=== PATIENT | male | born 1995 | race Caucasian/White ===

== ENCOUNTER 2017-04-24 17:23 | Emergency (ER) | payer SELFPAY ==
[~2017-04-24] VITALS: Ht 188 cm; Wt 100.0 kg
[2017-04-24 17:25] VITALS: BP 162/94; PULSE 90; RESP 20; TEMP 98.9; O2SAT 99
--- NOTE | 2017-04-24 20:26 | PD ---
HPI Chief Complaint: GI Complaint Time Seen by Provider: 20:22 Travel History International Travel<30 days: No Contact w/Intl Traveler<30days: No Traveled to known affect area: No History of Present Illness HPI 22-year-old male with no significant medical history presents to the emergency department for evaluation of 7 months of nausea and vomiting. Patient states he cannot keep anything down. He has seen GI for this and had an endoscopy and has been started on omeprazole. He states he does take this as directed. He states it does help with some of his indigestion but he feels like the reflux has gotten worse. Denies any hematemesis. No changes in bowel or bladder. No significant abdominal pain Or epigastric mild left upper quadrant mostly associated vomiting. Denies any fever or chills. Has no other symptoms to report. PFSH Past Medical History Medical History: Denies Significant Hx Social History Alcohol Use: No Tobacco Use: No Substance Use: No Allergies-Medications (Allergen,Severity, Reaction): Coded Allergies: No Known Allergies (Unverified , 04/24/17) Reported Meds & Prescriptions Reported Meds & Active Scripts Active Zofran Odt (Ondansetron Odt) 4 Mg Tab 4 Mg SL Q6HR PRN Reported Norvasc (Amlodipine Besylate) 5 Mg Tab 5 Mg PO DAILY Hydrochlorothiazide 12.5 Mg Cap 12.5 Mg PO DAILY Review of Systems Except as stated in HPI: all other systems reviewed are Neg Physical Exam Narrative GENERAL: Well-nourished male patient, in no acute distress. SKIN: Focused skin assessment warm/dry. HEAD: Atraumatic. Normocephalic. EYES: Pupils equal and round. No scleral icterus. No injection or drainage. ENT: No nasal bleeding or discharge. Mucous membranes pink and moist. NECK: Trachea midline. No JVD. CARDIOVASCULAR: Regular rate and rhythm. No murmur appreciated. RESPIRATORY: No accessory muscle use. Clear to auscultation. Breath sounds equal bilaterally. GASTROINTESTINAL: Abdomen soft, non-tender, nondistended. Hepatic and splenic margins not palpable. MUSCULOSKELETAL: No obvious deformities. No clubbing. No cyanosis. No edema. NEUROLOGICAL: Awake and alert. No obvious cranial nerve deficits. Motor grossly within normal limits. Normal speech. PSYCHIATRIC: Appropriate mood and affect; insight and judgment normal. Data Data Last Documented VS Vital Signs Date Time Temp Pulse Resp B/P (MAP) Pulse Ox O2 Delivery O2 Flow Rate FiO2 04/24/17 22:57 04/24/17 21:40 80 16 100 Room Air 04/24/17 17:25 98.9 Orders Orders Complete Blood Count With Diff (04/24/17 20:27) Comprehensive Metabolic Panel (04/24/17 20:27) Lipase (04/24/17 20:27) Urinalysis - C+S If Indicated (04/24/17 20:27) Iv Access Insert/Monitor (04/24/17 20:27) Ecg Monitoring (04/24/17 20:27) Oximetry (04/24/17 20:27) Ondansetron Inj (Zofran Inj) (04/24/17 20:30) Sodium Chlor 0.9% 1000 Ml Inj (Ns 1000 M (04/24/17 20:27) Sodium Chloride 0.9% Flush (Ns Flush) (04/24/17 20:30) Al-Mag Hy-Si 40-40-4 Mg/Ml Liq (Mag-Al P (04/24/17 20:30) Lidocaine 2% Viscous (Xylocaine 2% Visco (04/24/17 20:30) Potassium Chloride (Kcl) (04/24/17 22:45) Ed Discharge Order (04/24/17 22:47) Labs Laboratory Tests Test 04/24/17 21:17 White Blood Count 5.6 TH/MM3 Red Blood Count 5.14 MIL/MM3 Hemoglobin 15.6 GM/DL Hematocrit 45.7 % Mean Corpuscular Volume 88.9 FL Mean Corpuscular Hemoglobin 30.4 PG Mean Corpuscular Hemoglobin Concent 34.2 % Red Cell Distribution Width 12.7 % Platelet Count 233 TH/MM3 Mean Platelet Volume 8.6 FL Neutrophils (%) (Auto) 61.6 % Lymphocytes (%) (Auto) 29.5 % Monocytes (%) (Auto) 8.5 % Eosinophils (%) (Auto) 0.2 % Basophils (%) (Auto) 0.2 % Neutrophils # (Auto) 3.4 TH/MM3 Lymphocytes # (Auto) 1.6 TH/MM3 Monocytes # (Auto) 0.5 TH/MM3 Eosinophils # (Auto) 0.0 TH/MM3 Basophils # (Auto) 0.0 TH/MM3 CBC Comment DIFF FINAL Differential Comment Urine Color YELLOW Urine Turbidity CLEAR Urine pH 5.5 Urine Specific [place] 1.025 Urine Protein TRACE mg/dL Urine Glucose (UA) NEG mg/dL Urine Ketones 80 mg/dL Urine Occult Blood NEG Urine Nitrite NEG Urine Bilirubin NEG Urine Urobilinogen 2.0 MG/DL Urine Leukocyte Esterase NEG Urine RBC LESS THAN 1 /hpf Urine WBC LESS THAN 1 /hpf Urine Mucus MANY /lpf Microscopic Urinalysis Comment CULT NOT INDICATED Blood Urea Nitrogen 11 MG/DL Creatinine 0.83 MG/DL Random Glucose 85 MG/DL Total Protein 7.9 GM/DL Albumin 4.4 GM/DL Calcium Level 8.9 MG/DL Alkaline Phosphatase 64 U/L Aspartate Amino Transf (AST/SGOT) 33 U/L Alanine Aminotransferase (ALT/SGPT) 36 U/L Total Bilirubin 0.6 MG/DL Sodium Level 140 MEQ/L Potassium Level 3.0 MEQ/L Chloride Level 102 MEQ/L Carbon Dioxide Level 30.8 MEQ/L Anion Gap 7 MEQ/L Estimat Glomerular Filtration Rate 117 ML/MIN Lipase 107 U/L [facility] Medical Decision Making Medical Screen Exam Complete: Yes Emergency Medical Condition: Yes Medical Record Reviewed: Yes Differential Diagnosis Gastritis versus esophagitis versus pancreatitis versus electrolyte abnormality versus gastroparesis Narrative Course 22-year-old male presents emergency department for evaluation nausea and vomiting 7 months. Patient appears without distress. Abdominal exam is essentially benign. I discussed the patient my attending physician who recommends they move forward with lab work. Patient was given GI cocktail, IV fluids. Upon reassessment he states this does help ease his reflux sensation. Reports his nausea has resolved. Laboratory Tests Test 04/24/17 21:17 White Blood Count 5.6 TH/MM3 Red Blood Count 5.14 MIL/MM3 Hemoglobin 15.6 GM/DL Hematocrit 45.7 % Mean Corpuscular Volume 88.9 FL Mean Corpuscular Hemoglobin 30.4 PG Mean Corpuscular Hemoglobin Concent 34.2 % Red Cell Distribution Width 12.7 % Platelet Count 233 TH/MM3 Mean Platelet Volume 8.6 FL Neutrophils (%) (Auto) 61.6 % Lymphocytes (%) (Auto) 29.5 % Monocytes (%) (Auto) 8.5 % Eosinophils (%) (Auto) 0.2 % Basophils (%) (Auto) 0.2 % Neutrophils # (Auto) 3.4 TH/MM3 Lymphocytes # (Auto) 1.6 TH/MM3 Monocytes # (Auto) 0.5 TH/MM3 Eosinophils # (Auto) 0.0 TH/MM3 Basophils # (Auto) 0.0 TH/MM3 CBC Comment DIFF FINAL Differential Comment Urine Color YELLOW Urine Turbidity CLEAR Urine pH 5.5 Urine Specific [place] 1.025 Urine Protein TRACE mg/dL Urine Glucose (UA) NEG mg/dL Urine Ketones 80 mg/dL Urine Occult Blood NEG Urine Nitrite NEG Urine Bilirubin NEG Urine Urobilinogen 2.0 MG/DL Urine Leukocyte Esterase NEG Urine RBC LESS THAN 1 /hpf Urine WBC LESS THAN 1 /hpf Urine Mucus MANY /lpf Microscopic Urinalysis Comment CULT NOT INDICATED Blood Urea Nitrogen 11 MG/DL Creatinine 0.83 MG/DL Random Glucose 85 MG/DL Total Protein 7.9 GM/DL Albumin 4.4 GM/DL Calcium Level 8.9 MG/DL Alkaline Phosphatase 64 U/L Aspartate Amino Transf (AST/SGOT) 33 U/L Alanine Aminotransferase (ALT/SGPT) 36 U/L Total Bilirubin 0.6 MG/DL Sodium Level 140 MEQ/L Potassium Level 3.0 MEQ/L Chloride Level 102 MEQ/L Carbon Dioxide Level 30.8 MEQ/L Anion Gap 7 MEQ/L Estimat Glomerular Filtration Rate 117 ML/MIN Lipase 107 U/L Patient's potassium was repleted here in emergency department. He is counseled on care and encouraged to follow-up with a configuration management administrator again. He agrees to return immediately with any acute worsening symptoms. Diagnosis Primary Impression: Nausea & vomiting Qualified Codes: R11.2 - Nausea with vomiting, unspecified Additional Impression: Hypokalemia Referrals: Decorator Inspector Primary Care Physician Patient Instructions: Diet for Stomach Ulcers and Gastritis (ED), General Instructions Additional Instructions: Rheems diet Clear liquids, advance as tolerated Follow-up with gastroenterology. Follow-up with your primary care Return immediately to the emergency department with any acute worsening symptoms Med/Other Pt SpecificInfo: Prescription(s) given Scripts Ondansetron Odt (Zofran Odt) 4 Mg Tab 4 MG SL Q6HR Y for Nausea/Vomiting, #15 TAB 0 Refills Prov: Freda Bolton 04/24/17 Disposition: 01 DISCHARGE HOME Condition: Stable Freda Bolton Apr 24, 2017 20:26
[2017-04-24] MEDS ORDERED: SODIUM CHLOR 0.9% 1000 ML INJ 1,000 ML IV SCH (20:27)
[2017-04-24] MEDS ORDERED: ALUMINUM/MAGNESIUM/SIMETH 30 ML CUP PO ONE (20:30)
[2017-04-24] MEDS ORDERED: ONDANSETRON HCL 4 MG/2 ML VIAL IVP ONE (20:30)
[2017-04-24] MEDS ORDERED: LIDOCAINE VISCOUS 2% SOLN 15 ML UDC PO ONE (20:30)
[2017-04-24] MEDS ORDERED: SODIUM CHLORIDE 0.9% FLUSH 10 ML FLUSH IV FLUSH PRN (20:30)
[2017-04-24 21:40] VITALS: BP_SYST 131; BP_SYST 132; BP_DIAS 61; BP_DIAS 62; PULSE 80; RESP 16; O2SAT 100
[2017-04-24] MEDS ORDERED: HYDR12.57 PO (21:59)
[2017-04-24] MEDS ORDERED: AMLO5 PO (21:59)
[2017-04-24 22:11] LABS: AUTOMATED NEUTROPHIL # 3.4 TH/MM3 (1.8-7.7); BASOPHIL % 0.2 % (0.0-2.0); EOSINOPHIL % 0.2 % (0.0-4.0); HEMATOCRIT 45.7 % (39.0-51.0); HEMOGLOBIN 15.6 GM/DL (13.0-17.0); LYMPH % 29.5 % (9.0-44.0); LYMPHOCYTE # 1.6 TH/MM3 (1.0-4.8); MEAN CELL VOLUME 88.9 FL (80.0-100.0); MEAN CORPUSCULAR HEMOGLOBIN 30.4 PG (27.0-34.0); MEAN CORPUSCULAR HGB CONC 34.2 % (32.0-36.0); MEAN PLATELET VOLUME 8.6 FL (7.0-11.0); MONO % 8.5 % (0.0-8.0); MONOCYTE # 0.5 TH/MM3 (0-0.9); NEUT % 61.6 % (16.0-70.0); PLATELET COUNT 233 TH/MM3 (150-450); RED BLOOD COUNT 5.14 MIL/MM3 (4.50-5.90); RED CELL DISTRIBUTION WIDTH 12.7 % (11.6-17.2); WHITE BLOOD COUNT 5.6 TH/MM3 (4.0-11.0)
[2017-04-24 22:31] LABS: ALBUMIN 4.4 GM/DL (3.4-5.0); AST (GOT) 33 U/L (15-37); BICARBONATE 30.8 MEQ/L (21.0-32.0); BLOOD UREA NITROGEN 11 MG/DL (7-18); CALCIUM 8.9 MG/DL (8.5-10.1); CHLORIDE 102 MEQ/L (98-107); CREATININE 0.83 MG/DL (0.60-1.30); GLOMERULAR FILTRATION RATE 117 ML/MIN (>89); GLUCOSE,RANDOM 85 MG/DL (74-106); LIPASE 107 U/L (73-393); SODIUM (NA) 140 MEQ/L (136-145)
[2017-04-24 22:33] LABS: BILIRUBIN, URINE NEG (NEG); BLOOD, URINE NEG (NEG); GLUCOSE,URINE NEG (NEG); KETONE, URINE 80 mg/dL (NEG); MUCUS URINE MANY /lpf (OCC); NITRITE,URINE NEG (NEG); PH, URINE 5.5 (5.0-8.5); URINE COLOR YELLOW (YELLW/STRAW); URINE LEUKOCYTE ESTERASE NEG (NEG)
[2017-04-24 22:35] LABS: ALKALINE PHOSPHATASE 64 U/L (45-117); ALT (GPT) 36 U/L (12-78); TOTAL BILIRUBIN ADULT 0.6 MG/DL (0.2-1.0); TOTAL PROTEIN 7.9 GM/DL (6.4-8.2)
[2017-04-24] MEDS ORDERED: POTASSIUM CHLORIDE 10 MEQ CONTROLLED RELEASE TAB PO ONE (22:45)
[2017-04-24] MEDS ORDERED: ZOFR4TAB3 SL (22:53)
== END 2017-04-24 23:10 | disposition home or self-care (01) ==
LOC: NEPD 17:23
DX: R11.2 Nausea with vomiting, unspecified (principal); E87.6 Hypokalemia; K21.9 Gastro-esophageal reflux disease without esophagitis; Z79.899 Other long term (current) drug therapy
CPT/HCPCS: 80053; 81001; 83690; 85025; 96361; 96374; 99284; J2405; J7030

== ENCOUNTER 2017-05-24 18:22 | Emergency (ER) | payer SELFPAY ==
[~2017-05-24] VITALS: Ht 188 cm; Wt 90.5 kg
[~2017-05-24 18:22] MED LIST: AMLO5 PO; HYDR12.57 PO; ZOFR4TAB3 SL
[2017-05-24 18:23] VITALS: BP 146/89; PULSE 87; RESP 14; TEMP 97.8; O2SAT 100
[2017-05-24 18:45] VITALS: BP 156/83; PULSE 85; RESP 18; O2SAT 100
[2017-05-24] MEDS ORDERED: CITA40TA4 PO (18:48)
[2017-05-24] MEDS ORDERED: SODIUM CHLORIDE 0.9% FLUSH 10 ML FLUSH IVF PRN (19:15)
[2017-05-24] MEDS ORDERED: KETOROLAC TROMETHAMINE 30 MG/ML (IVP) VIAL IV PUSH ONE (19:15)
--- NOTE | 2017-05-24 19:32 | PD ---
HPI Chief Complaint: Pain: Acute or Chronic Time Seen by Provider: 18:57 Travel History International Travel<30 days: No Contact w/Intl Traveler<30days: No Traveled to known affect area: No History of Present Illness HPI 22-year-old male presents to the emergency department for evaluation of chest pain that he states started approximately one hour prior to arrival. He states it is in the left chest closed to the admits sternal area. He points to specific area where the pain is. Patient states he also had an episode of dizziness and tingling in all extremities. He does report history of anxiety, but states this is not his typical anxiety symptoms. He also states he was coughing up blood, he thinks it was from a nosebleed. He denies any recent surgery or travel. No leg edema. No history DVT or PE. He does have history of hypertension. He denies any significant family cardiac history. Patient states that he was a previous IV drug user, but has not used in 8 months. He does state that coughing will worsen the pain. No alleviating factors. Moderate severity. PFSH Past Medical History Anxiety: Yes Diminished Hearing: No Gastrointestinal Disorders: Yes (GB DISEASE) GERD: Yes Hypertension: Yes Immunizations Current: No Tetanus Vaccination: Unknown Influenza Vaccination: No Past Surgical History Tonsillectomy: Yes Social History Alcohol Use: Yes (occ) Tobacco Use: Yes Substance Use: No Allergies-Medications (Allergen,Severity, Reaction): Coded Allergies: No Known Allergies (Unverified , 05/24/17) Reported Meds & Prescriptions Reported Meds & Active Scripts Active Reported Citalopram (Citalopram Hydrobromide) 40 Mg Tab 40 Mg PO DAILY Norvasc (Amlodipine Besylate) 5 Mg Tab 5 Mg PO DAILY Hydrochlorothiazide 12.5 Mg Cap 12.5 Mg PO DAILY Review of Systems Except as stated in HPI: all other systems reviewed are Neg Physical Exam Narrative GENERAL: Well-nourished, well-developed male patient, afebrile. SKIN: Focused skin assessment warm/dry. HEAD: Normocephalic. Atraumatic. EYES: No scleral icterus. No injection or drainage. NECK: Supple, trachea midline. No JVD or lymphadenopathy. CARDIOVASCULAR: Regular rate and rhythm without murmurs, gallops, or rubs. RESPIRATORY: Breath sounds equal bilaterally. No accessory muscle use. Lungs sounds are clear to auscultation. GASTROINTESTINAL: Abdomen soft, non-tender, nondistended. MUSCULOSKELETAL: No cyanosis, or edema. Chest pain is reproducible with palpation. BACK: Nontender without obvious deformity. No CVA tenderness. Data Data Last Documented VS Vital Signs Date Time Temp Pulse Resp B/P (MAP) Pulse Ox O2 Delivery O2 Flow Rate FiO2 05/24/17 19:47 69 15 146/77 (100) 100 Room Air 05/24/17 18:23 97.8 Orders Orders Electrocardiogram (05/24/17:) Basic Metabolic Panel (Bmp) (05/24/17 19:07) Ckmb (Isoenzyme) Profile (05/24/17:) Complete Blood Count With Diff (05/24/17:) D-Dimer (05/24/17:) Magnesium (Mg) (05/24/17:) Prothrombin Time / Inr (Pt) (05/24/17:) Act Partial Throm Time (Ptt) (05/24/17:) Troponin I (05/24/17:) Chest, Single Ap (05/24/17:) Ecg Monitoring (05/24/17:) Bilateral Bp Monitoring (05/24/17:) Iv Access Insert/Monitor (05/24/17:) Oximetry (05/24/17:) Oxygen Administration (05/24/17:07) Sodium Chloride 0.9% Flush (Ns Flush) (05/24/17 19:15) Drug Screen, Random Urine (05/24/17 19:) Ketorolac Inj (Toradol Inj) (05/24/17 19:15) Influenzae A/B Antigen (05/24/17 19:27) CKMB (05/24/17 19:20) CKMB% (05/24/17 19:20) Labs Laboratory Tests Test 05/24/17 19:20 White Blood Count 7.5 TH/MM3 Red Blood Count 4.89 MIL/MM3 Hemoglobin 15.3 GM/DL Hematocrit 43.5 % Mean Corpuscular Volume 88.8 FL Mean Corpuscular Hemoglobin 31.2 PG Mean Corpuscular Hemoglobin Concent 35.2 % Red Cell Distribution Width 12.9 % Platelet Count 261 TH/MM3 Mean Platelet Volume 8.6 FL Neutrophils (%) (Auto) 52.4 % Lymphocytes (%) (Auto) 39.9 % Monocytes (%) (Auto) 5.8 % Eosinophils (%) (Auto) 1.5 % Basophils (%) (Auto) 0.4 % Neutrophils # (Auto) 3.9 TH/MM3 Lymphocytes # (Auto) 3.0 TH/MM3 Monocytes # (Auto) 0.4 TH/MM3 Eosinophils # (Auto) 0.1 TH/MM3 Basophils # (Auto) 0.0 TH/MM3 CBC Comment DIFF FINAL Differential Comment Prothrombin Time 10.6 SEC Prothromb Time International Ratio 1.0 RATIO Activated Partial Thromboplast Time 25.2 SEC D-Dimer Quantitative (PE/DVT) 0.19 MG/L FEU Blood Urea Nitrogen 11 MG/DL Creatinine 0.91 MG/DL Random Glucose 95 MG/DL Calcium Level 9.3 MG/DL Magnesium Level 2.1 MG/DL Sodium Level 139 MEQ/L Potassium Level 3.6 MEQ/L Chloride Level 103 MEQ/L Carbon Dioxide Level 29.4 MEQ/L Anion Gap 7 MEQ/L Estimat Glomerular Filtration Rate 105 ML/MIN Total Creatine Kinase 157 U/L Creatine Kinase MB 1.2 NG/ML Troponin I LESS THAN 0.02 NG/ML Urine Opiates Screen NEG Urine Barbiturates Screen NEG Urine Amphetamines Screen NEG Urine Benzodiazepines Screen NEG Urine Cocaine Screen NEG Urine Cannabinoids Screen NEG MDM Medical Decision Making Medical Screen Exam Complete: Yes Emergency Medical Condition: Yes Medical Record Reviewed: Yes Interpretation(s) chest x-ray - CONCLUSION: No acute cardiopulmonary disease. Differential Diagnosis Chest wall pain versus pneumonia versus pneumothorax versus ACS versus PE versus influenza Narrative Course 22-year-old male presents to the emergency department for evaluation of chest pain that started approximately 1 hour prior to arrival. He does appear well on exam. IV access established. CBC, BMP, CK, troponin, magnesium, PTT, PT/INR , d-dimer, and influenza are ordered and pending. Urine drug screen is ordered and pending. Chest x-ray is ordered and pending. Patient is given Toradol 30 mg IV. EKG shows SR, HR 71, no acute ST changes. CBC is unremarkable. BMP is unremarkable. CK is 157. Troponin is less than 0.02. Magnesium is 2.1. Coags are unremarkable. D-dimer is 0.19. Influenza is negative. UDS is negative. CXR shows no acute cardiopulmonary disease. Labs and imaging are reassuring. Symptoms are consistent with musculoskeletal origin, anxiety. He is instructed to follow primary care physician. He is return here for any acute worsening of symptoms. Diagnosis Primary Impression: Chest wall pain Referrals: Primary Care Physician call for appointment Patient Instructions: Chest Wall Pain (ED), General Instructions Additional Instructions: Take ibuprofen as directed as needed with food for pain. Follow-up with your primary care physician. Return to the emergency department for any acute worsening of symptoms. Med/Other Pt SpecificInfo: Prescription(s) given Scripts Ibuprofen (Ibuprofen) 600 Mg Tab 600 MG PO TID Y for PAIN SCALE 1 TO 10, #21 TAB 0 Refills Prov: Maribell Tapia 05/24/17 Disposition: 01 DISCHARGE HOME Condition: Stable Maribell Tapia May 24, 2017 19:32
--- NOTE | 2017-05-24 19:37 | RADRPT ---
EXAM DATE/TIME: 05/24/2017 19:15 [facility] COMPARISON: No previous studies available for comparison. INDICATIONS : Chest Pain MEDICAL HISTORY : Asthma, Hypertension SURGICAL HISTORY : None. ENCOUNTER: Initial ACUITY: 1 day PAIN SCORE: 4/10 LOCATION: chest FINDINGS: The lungs are clear without infiltrate, nodule, or mass. There is no appreciable pleural effusion fo r technique. Heart and mediastinum are unremarkable. CONCLUSION: No acute cardiopulmonary disease. Sapna Goodman MD on May 24, 2017 at 19:35 Board Certified Radiologist. This report was verified electronically.
[2017-05-24 19:44] VITALS: RESP 16; O2SAT 99
[2017-05-24 19:45] VITALS: BP 145/83; PULSE 73; RESP 16; O2SAT 100
[2017-05-24 19:47] VITALS: BP 146/77; PULSE 69; RESP 15; O2SAT 100
[2017-05-24 20:06] LABS: AUTOMATED NEUTROPHIL # 3.9 TH/MM3 (1.8-7.7); BASOPHIL % 0.4 % (0.0-2.0); EOSINOPHIL # 0.1 TH/MM3 (0-0.4); EOSINOPHIL % 1.5 % (0.0-4.0); HEMATOCRIT 43.5 % (39.0-51.0); HEMOGLOBIN 15.3 GM/DL (13.0-17.0); LYMPH % 39.9 % (9.0-44.0); MEAN CELL VOLUME 88.8 FL (80.0-100.0); MEAN CORPUSCULAR HEMOGLOBIN 31.2 PG (27.0-34.0); MEAN CORPUSCULAR HGB CONC 35.2 % (32.0-36.0); MEAN PLATELET VOLUME 8.6 FL (7.0-11.0); MONO % 5.8 % (0.0-8.0); MONOCYTE # 0.4 TH/MM3 (0-0.9); NEUT % 52.4 % (16.0-70.0); PLATELET COUNT 261 TH/MM3 (150-450); RED BLOOD COUNT 4.89 MIL/MM3 (4.50-5.90); RED CELL DISTRIBUTION WIDTH 12.9 % (11.6-17.2); WHITE BLOOD COUNT 7.5 TH/MM3 (4.0-11.0)
[2017-05-24 20:42] LABS: PROTHROMBIN TIME - PATIENT 10.6 SEC (9.8-11.6)
[2017-05-24 20:45] LABS: BICARBONATE 29.4 MEQ/L (21.0-32.0); BLOOD UREA NITROGEN 11 MG/DL (7-18); CALCIUM 9.3 MG/DL (8.5-10.1); CHLORIDE 103 MEQ/L (98-107); CREATININE 0.91 MG/DL (0.60-1.30); GLOMERULAR FILTRATION RATE 105 ML/MIN (>89); GLUCOSE,RANDOM 95 MG/DL (74-106); MAGNESIUM 2.1 MG/DL (1.5-2.5); SODIUM (NA) 139 MEQ/L (136-145)
[2017-05-24 20:51] LABS: TROPONIN I LESS THAN 0.02 NG/ML (0.02-0.05)
[2017-05-24 20:52] LABS: D-DIMER 0.19 MG/L FEU (0.00-0.50)
[2017-05-24] MEDS ORDERED: IBUP-232 PO (21:11)
--- NOTE | 2017-05-25 13:20 | EKG ---
Date Performed: 05/24/2017 Time Performed: 18:38:20 PTAGE: 22 years EKG: Within normal limits ABNORMAL RHYTHM ECG NO PREVIOUS TRACING DOCTOR: Sanjay Tsang Interpretating Date/Time 05/25/2017 13:19:21
== END 2017-05-24 21:53 | disposition home or self-care (01) ==
LOC: NEPE 18:22
DX: R07.89 Other chest pain (principal); F41.9 Anxiety disorder, unspecified; I10 Essential (primary) hypertension; R94.31 Abnormal electrocardiogram [ECG] [EKG]; K21.9 Gastro-esophageal reflux disease without esophagitis; Z72.0 Tobacco use
CPT/HCPCS: 71045; 80048; 80307; 82550; 82552; 83735; 84484; 85025; 85379; 85610; 85730; 87804; 93005; 96374; 99285; J1885